=== PATIENT | male | born 1955 | race Caucasian/White ===

== ENCOUNTER 2017-03-28 14:44 | Emergency (ER) | payer BC ==
[~2017-03-28] VITALS: Ht 170.2 cm; Wt 86.4 kg
[2017-03-28] MEDS ORDERED: CLARITIN 1010 MG/TAB PO (15:06)
[2017-03-28] MEDS ORDERED: VITAMIN B122500 MC1 (15:07)
[2017-03-28] MEDS ORDERED: MULTI-VITAMINS1 TA1 (15:07)
[2017-03-28] MEDS ORDERED: FLUTICASON0.05 MG/AC NS (15:07)
[2017-03-28] MEDS ORDERED: CEPHALEXIN500 M1 PO (15:38)
[2017-03-28] MEDS ORDERED: NORCO 325 MG-51 TA1 PO (15:38)
[2017-03-28 16:25] VITALS: BP 154/78
== END 2017-03-28 16:26 | disposition home or self-care (01) ==
LOC: ED 14:44
DX: S61.211A Laceration without foreign body of left index finger without damage to nail, initial encounter (principal); W26.0XXA Contact with knife, initial encounter; Y92.009 Unspecified place in unspecified non-institutional (private) residence as the place of occurrence of the external cause

== ENCOUNTER 2024-02-08 14:15 | Emergency (ER) | payer MEDICARE, BC ==
[~2024-02-08] VITALS: Ht 170.2 cm; Wt 78.2 kg
[~2024-02-08 14:15] MED LIST: CEPHALEXIN500 M1 PO; CLARITIN 1010 MG/TAB PO; FLUTICASON0.05 MG/AC NS; MULTI-VITAMINS1 TA1; NORCO 325 MG-51 TA1 PO; VITAMIN B122500 MC1
[2024-02-08 14:57] LABS: BASO # 0.03 K/mm3 (0.02-0.10); EOS # 0.09 K/mm3 (0.04-0.40); EOS % 1.4 % (0.0-4.0); HEMATOCRIT 40.2 % (42.0-52.0); HEMOGLOBIN 13.7 g/dL (13.5-18.0); LYMPH# 1.29 K/mm3 (1.50-4.00); MEAN CELL VOLUME 90 fl (78-100); MEAN CORPUSCULAR HEMOGLOBIN 31 pg (27-31); MEAN CORPUSCULAR HGB CONC 34 g/dL (33-37); MEAN PLATELET VOLUME 9.2 fl (7.4-10.4); MONO # 0.57 K/mm3 (0.20-0.80); NEU # 4.59 K/mm3 (1.40-6.50); PLATELET COUNT 263 K/mm3 (130-400); RED BLOOD COUNT 4.47 M/mm3 (4.20-5.60); RED CELL DISTRIBUTION WIDTH 12.5 % (11.5-14.5); WHITE BLOOD COUNT 6.6 K/mm3 (4.8-10.8)
[2024-02-08] MEDS ORDERED: Mag/Al Hydrox/Simeth Susp 30 ML CUP PO ONE (15:00)
[2024-02-08] MEDS ORDERED: Lidocaine 2% Viscous 15 ML UNIT DOSE CUP MM ONE (15:00)
[2024-02-08 15:02] LABS: ALBUMIN 4.4 g/dL (3.4-4.8)
[2024-02-08 15:03] LABS: CALCIUM 9.3 mg/dL (8.3-10.5)
[2024-02-08 15:05] LABS: TOTAL PROTEIN 6.9 g/dL (6.2-8.1)
[2024-02-08 15:06] LABS: TOTAL BILIRUBIN 0.7 mg/dL (0.2-1.2)
[2024-02-08 15:57] LABS: D-DIMER 0.53 mg/L FEU (0.15-0.50)
[2024-02-08] MEDS ORDERED: Iohexol 300 - 100 ML VIAL IV ONE (17:01)
[2024-02-08 18:00] VITALS: BP 143/85
== END 2024-02-08 18:15 | disposition home or self-care (01) ==
LOC: ED 14:15
PROVIDERS: Physician Assistant
DX: R13.10 Dysphagia, unspecified (principal)
CPT/HCPCS: Q9967